=== PATIENT | male | born 1965 | race Caucasian/White ===

== ENCOUNTER 2018-09-22 10:04 | Day surgery (SDC) | payer BC, MEDICARE ==
[2018-09-22] MEDS ORDERED: KETOROLAC 30 MG/ML VIAL IVP ONE (10:05)
[2018-09-22] MEDS ORDERED: BUPIVACAINE 0.5% W/EPI MPF 30 ML VIAL IVP ONE (10:05)
[2018-09-22] MEDS ORDERED: PROPOFOL 10 MG/ML VIAL IV ONE (10:05)
[2018-09-22] MEDS ORDERED: MIDAZOLAM HCL 2MG/2ML VIAL IV ONE (10:05)
[2018-09-22] MEDS ORDERED: CEFAZOLIN 2 Gram 2 GM/50 ML BAG IVPB ONE (10:05)
[2018-09-22] MEDS ORDERED: LIDOCAINE 2% MDV (20MG/ML) 20ML VIAL IV ONE (10:05)
[2018-09-22] MEDS ORDERED: METHYLPREDNISOLONE 40MG/VIAL IM ONE (10:05)
[2018-09-22] MEDS ORDERED: ACETAMINOPHEN 1,000 MG/100 ML BTL IV ONE (10:05)
[2018-09-22] MEDS ORDERED: MORPHINE SULFATE 4 MG/ML VIAL ONE (10:36)
--- NOTE | 2018-09-24 09:11 | Operative Note ---
DATE OF SURGERY: 09/22/2018 PREOPERATIVE DIAGNOSIS: Internal derangement of the left knee. POSTOPERATIVE DIAGNOSES: 1. Grade 3 chondromalacia of the notch. 2. Complex tear involving the posterior horn of the medial meniscus. OPERATION: 1. Left knee arthroscopy with a subtotal medial meniscectomy. 2. Left knee arthroscopy with debridement and chondroplasty of the notch. Staff Surgeon: Ruddy Posey MD Anesthesia: General. Preparation: Chloraprep. Individual Considerations: None. PROCEDURE: The patient was taken to the operating room and placed supine on the operating room table. The patient had a successful induction with general anesthetic. The left lower extremity was prepped and draped in the usual fashion. The patient had a superolateral inflow cannula placed. Skin was infiltrated with 0.5% Marcaine with epinephrine prior. A stab wound was made and a blunt-tipped trocar for the inflow was placed and then the blunt-tipped trocar for the scope was placed. The knee was inflated with normal saline. An inferomedial and an inferolateral portal were made in a similar fashion. The arthroscope was introduced through the inferolateral portal up into the pouch. The patellofemoral joint showed grade 3 changes in the notch. This was smoothed with a shaver. Fiber cartilage on the patella with normal tracking. No real significant synovitis or loose bodies were seen. Medially, he had a split tear involving, basically a split bucket-handle tear of the posterior horn of the medial meniscus. This was debrided out to a stable rim with basket forceps and a shaver. The medial and anterior horns were intact. In the notch, the cruciates were normal. Lateral compartment structures were normal. The knee was then irrigated out with saline to remove loose floating debris. Portals were closed with tobi, and 20 mL of 0.25% plain Marcaine along with 4 mg of morphine and 40 mg of Depo-Medrol were injected into the knee. A sterile bulky compressive dressing was applied. The patient tolerated procedure well. Needle and sponge counts were correct. Estimated blood loss was minimal. He was taken back to recovery in good condition. There were no complications. [facility]ITAL[facility]
== END 2018-09-22 13:20 | disposition home or self-care (01) ==
LOC: SUR 10:04
PROVIDERS: ATTEND Orthopaedic Surgery
DX: S83.232A Complex tear of medial meniscus, current injury, left knee, initial encounter (principal); M94.262 Chondromalacia, left knee; I10 Essential (primary) hypertension; E03.9 Hypothyroidism, unspecified; M10.9 Gout, unspecified; M31.30 Wegener's granulomatosis without renal involvement; K21.9 Gastro-esophageal reflux disease without esophagitis
CPT/HCPCS: 29881; 01400; J1885; J0690; J2270; J1030